=== PATIENT | female | born 1955 | race Caucasian/White ===

== ENCOUNTER → 2016-12-27 | Outpatient (CLI) | payer BC ==
[~2016-12-27] MED LIST: BISO2.5T PO; FERR142T PO; MULT-513 PO; PANT40TA PO; SERT25TA PO; WARF2TAB PO; WARF5TAB90 PO; ZNTT/150 PO
--- NOTE | 2016-12-27 15:32 | MAMMOGRAPHY REPORT ---
BILATERAL DIGITAL SCREENING MAMMOGRAM WITH CAD: 12/27/2016 CLINICAL HISTORY: Routine screening. Patient has no complaints. TECHNIQUE: Current study was also evaluated with a Computer Aided Detection (CAD) system. Bilatera l CC and MLO views were obtained. COMPARISON: Comparison is made to exams dated: 01/13/2015 mammogram, 01/05/2013 mammogram, 01/11/2014 mammogram, 07/02/2011 mammogram, 06/22/2011 mammogram, and 02/28/2010 mammogram - [facility]. BREAST COMPOSITION: There are scattered areas of fibroglandular density in both breasts. FINDINGS: No suspicious masses, calcifications, or areas of architectural distortion are noted in e ither breast. There has been no significant interval change compared to prior exams. Small nodular asymmetry in the right lateral posterior breast on the cc view is similar to the 2015 exam and is co nsidered benign given long-term stability and likely represents normal fibroglandular tissue. IMPRESSION: ACR BI-RADS CATEGORY 2: BENIGN There is no mammographic evidence of malignancy. A 1 year screening mammogram is recommended. The p atient will receive written notification of the results. Approximately 10% of breast cancers are not detected with mammography. A negative mammographic repor t should not delay biopsy if a clinically suggestive mass is present. Nely Way M.D. /:12/27/2016 15:14:49 Php Lamp Developer: Zoë PENA)(Nita), [facility] letter sent: Normal 1/2 BI-RADS Code: ACR BI-RADS Category 2: Benign
== END | disposition home or self-care (01) ==
LOC: C.MAMM 13:52
PROVIDERS: ATTEND Obstetrics & Gynecology
DX: Z12.31 Encounter for screening mammogram for malignant neoplasm of breast (principal)

== ENCOUNTER → 2017-01-14 | Outpatient (CLI) | payer BC ==
[~2017-01-14] MED LIST changes: -PANT40TA PO
--- NOTE | 2017-01-14 16:03 | DIAGNOSTIC IMAGING REPORT ---
TWO VIEW CHEST CLINICAL HISTORY: Atypical chest pain. FINDINGS: PA and lateral chest radiographs are compared to study dated 01/27/2015 and correlated with chest CT dated 08/14/2016. The heart is top normal in size. The lungs and pleural spaces are clear. There is no pneumothorax. The skeletal structures are osteopenic. The bony thorax appears intact. Surgical clips are seen in the right lower neck. IMPRESSION: No active disease in the chest. Electronically signed by: Shiva Diaz M.D. 01/14/2017 4:02 PM Dictated Date/Time: 01/14/2017 4:00 PM
[2017-01-14 16:42] LABS: BASO % 0.7 %; BASO ABS # 0.05 K/uL (0-0.2); COMPLETE YES; EOS % 3.3 %; HEMATOCRIT 42.7 % (37-47); IG% 0.1 %; LYMPH ABS # 2.61 K/uL (1.2-3.4); MEAN CELL VOLUME 85.4 fL (80-100); MEAN PLATELET VOLUME 10.9 fL (7.4-10.4); MONO % 4.8 %; NEUT % 55.1 %; PLATELET COUNT 262 K/uL (130-400); WHITE BLOOD COUNT 7.24 K/uL (4.8-10.8)
[2017-01-14 17:06] LABS: BLOOD UREA NITROGEN 17 mg/dl (7-18); GLUCOSE 93 mg/dl (70-99)
[2017-01-14 17:07] LABS: ALT/SGPT 37 U/L (12-78); AST/SGOT 18 U/L (15-37); BUN/CREATININE RATIO 25.4 (10-20); CALCIUM 9.5 mg/dl (8.5-10.1); CARBON DIOXIDE 28 mmol/L (21-32); CHLORIDE 105 mmol/L (98-107); CREATININE 0.67 mg/dl (0.60-1.20); POTASSIUM 3.5 mmol/L (3.5-5.1); SODIUM 141 mmol/L (136-145)
[2017-01-14 17:09] LABS: ALB/GLOB RATIO 1.1 (0.9-2); ALKALINE PHOSPHATASE 66 U/L (45-117)
== END | disposition home or self-care (01) ==
LOC: C.RAD1850 15:40
PROVIDERS: ATTEND Nurse Practitioner Adult Health
DX: R05 Cough (principal); R07.89 Other chest pain

== ENCOUNTER → 2017-10-23 | Outpatient (CLI) | payer BC ==
--- NOTE | 2017-10-23 21:30 | DIAGNOSTIC IMAGING REPORT ---
ULTRASOUND RIGHT UPPER QUADRANT ABDOMEN CLINICAL HISTORY: Right upper quadrant abdominal pain. COMPARISON STUDY: Abdominal CT dated 03/19/2010. TECHNIQUE: Real-time, grayscale, and color flow sonography of the right upper quadrant of the abdomen was performed. Images are reviewed in the transverse and longitudinal planes. FINDINGS: Liver: The liver is enlarged measuring over 18 cm in length. The liver demonstrates heterogeneously increased echotexture consistent with hepatic steatosis. There is no intrahepatic biliary ductal dilatation. The main portal vein is patent. Gallbladder: The gallbladder is normal in appearance. No gallstones are identified. There is no gallbladder wall thickening or pericholecystic fluid. A sonographic Tapia's sign is reportedly absent. The common bile duct measures up to 0.7 cm in diameter. Pancreas: Visualized portions of the pancreatic head and body are normal in appearance. The splenic vein is patent. Right kidney: Survey images of the right kidney demonstrate normal size and echotexture. There is no hydronephrosis. Ascites: None. IMPRESSION: 1. No acute sonographic abnormality is identified in the right upper quadrant. No gallstones are seen. 2. Hepatomegaly and mild hepatic steatosis. Electronically signed by: Shiva Diaz M.D. 10/23/2017 9:29 PM Dictated Date/Time: 10/23/2017 9:28 PM
== END | disposition home or self-care (01) ==
LOC: C.ULTR 20:52
PROVIDERS: ATTEND Family Medicine
DX: R10.11 Right upper quadrant pain (principal); R16.0 Hepatomegaly, not elsewhere classified; K76.0 Fatty (change of) liver, not elsewhere classified

== ENCOUNTER → 2017-10-29 | Outpatient (CLI) | payer BC ==
--- NOTE | 2017-10-29 15:46 | DIAGNOSTIC IMAGING REPORT ---
CT SCAN OF THE CHEST WITHOUT IV CONTRAST CLINICAL HISTORY: Pulmonary nodule follow-up. COMPARISON STUDY: Chest CT scans dated 08/14/2016 and 04/06/2010. TECHNIQUE: CT scan of the thorax was performed from the thoracic inlet to the upper abdomen. Images are reviewed in the axial, sagittal, and coronal planes. IV contrast was not administered for this examination as per the referring clinician. A dose lowering technique was utilized adhering to the principles of ALARA. CT DOSE: 303.63 mGycm FINDINGS: Thyroid: Imaged portions of the thyroid gland are normal in size and attenuation. A calcified nodule in the right lobe is unchanged and measures up to 1.1 cm. Thoracic aorta: The thoracic aorta is normal in caliber and demonstrates standard 3-vessel arch anatomy. Heart: The heart is enlarged and without pericardial effusion. The pulmonary trunk appears dilated, measuring up to 3.6 cm. This suggests pulmonary artery hypertension. Lungs and pleural spaces: Atelectasis is seen at the anterior left lung base in the anterior right middle lobe. There is no airspace consolidation typical for pneumonia or pleural effusion. A calcified granuloma in the right lower lobe is unchanged dating back to 2009. This corresponds to the nodule questioned on 08/14/2016. No concerning pulmonary lesion is identified. The trachea and central airways are clear. Mediastinum: There is no mediastinal lymphadenopathy. Michelle: Not well assessed without IV contrast. Axillae: There is no axillary lymphadenopathy. A stent is noted in the right axillary region. Upper abdomen: There is a tiny hiatal hernia. Mild hepatic steatosis is suggested. Skeletal structures: No lytic or blastic bony lesions are seen. The right first rib appears surgically absent. IMPRESSION: 1. A small granuloma is again seen in the right lower lobe. This is been present dating back to 2009 when it was clearly calcified, and corresponds to the nodule concern seen on 08/07/1716. 2. No new or concerning pulmonary lesion is identified. 3. There is bibasilar atelectasis. No airspace consolidation is seen typical for pneumonia and there is no pleural effusion. 4. Cardiomegaly. 5. Additional findings as above. Electronically signed by: Shiva Diaz M.D. 10/29/2017 3:44 PM Dictated Date/Time: 10/29/2017 3:34 PM
== END | disposition home or self-care (01) ==
LOC: C.CTS 15:17
PROVIDERS: ATTEND Internal Medicine
DX: R91.1 Solitary pulmonary nodule (principal); J98.11 Atelectasis; I51.7 Cardiomegaly

== ENCOUNTER → 2017-11-13 | Outpatient (CLI) | payer BC ==
[~2017-11-13] MED LIST changes: +ASPI-428 PO; +BISO5TAB15 PO; +FERR1TAB23 PO; +IMD/2 PO; +MULT-506 PO; +RANI150T85 PO; -ZNTT/150 PO
== END | disposition home or self-care (01) ==
LOC: C.LABSPEC 13:36
PROVIDERS: ATTEND Obstetrics & Gynecology
DX: N93.9 Abnormal uterine and vaginal bleeding, unspecified (principal)

== ENCOUNTER → 2017-11-13 | Outpatient (CLI) | payer BC | END | disposition home or self-care (01) | LOC: C.PAPS 14:11 | PROVIDERS: ATTEND Obstetrics & Gynecology | DX: Z01.411 Encounter for gynecological examination (general) (routine) with abnormal findings (principal); R87.615 Unsatisfactory cytologic smear of cervix ==

== ENCOUNTER → 2017-12-19 | Outpatient (CLI) | payer BC ==
[~2017-12-19] MED LIST changes: -BISO2.5T PO; -FERR142T PO; -IMD/2 PO; -MULT-513 PO; -RANI150T85 PO; -WARF2TAB PO; -WARF5TAB90 PO
== END | disposition home or self-care (01) ==
LOC: C.RDSM 18:21
PROVIDERS: ATTEND Orthopaedic Surgery
DX: M25.531 Pain in right wrist (principal); M25.532 Pain in left wrist

== ENCOUNTER → 2017-12-30 | Outpatient (CLI) | payer BC ==
--- NOTE | 2017-12-31 12:56 | MAMMOGRAPHY REPORT ---
BILATERAL DIGITAL SCREENING MAMMOGRAM TOMOSYNTHESIS WITH CAD: 12/30/2017 CLINICAL HISTORY: Routine screening. Patient has no complaints. TECHNIQUE: Breast tomosynthesis in addition to standard 2D mammography was performed. Current study was also evaluated with a Computer Aided Detection (CAD) system. COMPARISON: Comparison is made to exams dated: 12/27/2016 mammogram, 01/13/2015 mammogram, 01/11/2014 ma mmogram, 01/05/2013 mammogram, 06/22/2011 mammogram, and 02/28/2010 mammogram - [facility]. BREAST COMPOSITION: There are scattered areas of fibroglandular density in both breasts. FINDINGS: No suspicious mass, architectural distortion or cluster of microcalcifications is seen. IMPRESSION: ACR BI-RADS CATEGORY 1: NEGATIVE There is no mammographic evidence of malignancy. A 1 year screening mammogram is recommended. The pa tient will receive written notification of the results. Approximately 10% of breast cancers are not detected with mammography. A negative mammographic report should not delay biopsy if a clinically suggestive mass is present. Estephanie starkey/kwame:12/30/2017 15:47:35 Home Demonstrator: Daniella Toussaint RT(R)(M), [facility] letter sent: Normal 1/2 BI-RADS Code: ACR BI-RADS Category 1: Negative
== END | disposition home or self-care (01) ==
LOC: C.MAMM 15:29
PROVIDERS: ATTEND Obstetrics & Gynecology
DX: Z12.31 Encounter for screening mammogram for malignant neoplasm of breast (principal)

== ENCOUNTER → 2018-01-03 | Outpatient (CLI) | payer BC ==
[2018-01-03 16:15] LABS: HEMATOCRIT 42.1 % (37-47); HEMOGLOBIN 13.8 g/dL (12.0-16.0); MEAN CELL VOLUME 86.1 fL (80-100); MEAN CORPUSCULAR HEMOGLOBIN 28.2 pg (25-34); MEAN CORPUSCULAR HGB CONC 32.8 g/dl (32-36); MEAN PLATELET VOLUME 10.6 fL (7.4-10.4); PLATELET COUNT 221 K/uL (130-400); RED CELL DISTRIBUTION WIDTH CV 12.6 % (11.5-14.5); RED CELL DISTRIBUTION WIDTH SD 39.8 fL (36.4-46.3); WHITE BLOOD COUNT 7.52 K/uL (4.8-10.8)
[2018-01-03 16:29] LABS: PTT PATIENT 27.3 SECONDS (21.0-31.0)
== END | disposition home or self-care (01) ==
LOC: C.LAB1850 15:50
PROVIDERS: ATTEND Obstetrics & Gynecology
DX: Z01.812 Encounter for preprocedural laboratory examination (principal)

== ENCOUNTER → 2018-01-06 | Day surgery (SDC) | payer BC ==
[2017-12-16 15:26] VITALS: Ht 157.5 cm; Wt 75.0 kg
[~2018-01-06] VITALS: Ht 157.5 cm; Wt 75.0 kg
[~2018-01-06] MED LIST changes: +ATROPINE SULFATE 0.1 MG/ML 5ML SYR IV PRN; +BACITRACIN OINT 15 GM TUBE ONE; +DEXAMETHASONE SOD INJ 4 MG/ML VIAL ONE; +FENTANYL CITRATE INJ 50 MCG/1 ML 2 ML VIAL IV PRN; +FENTANYL CITRATE INJ 50 MCG/1 ML 2 ML VIAL ONE; +FERRIC SUBSULFATE 8 GM VIAL ONE; +IBUPROFEN 600 MG TAB PO PRN; +KETOROLAC TROMETHAMINE 30 MG/ML VIAL IV. PRN; +KETOROLAC TROMETHAMINE 30 MG/ML VIAL ONE; +LABETALOL HCL IV 5 MG/ML 20ML IV PRN; +LACTATED RINGER'S 1000ML 1,000 ML IV SCH; +LIDOCAINE HCL 2% 2 ML VIAL (20MG/ML) ONE; +LIDOCAINE/EPINEPHRINE 1% 20 ML VIAL ONE; +MIDAZOLAM HCL 1 MG/ML 2ML VIAL ONE; +NEOMYCIN/POLYMYX/BACITR OINT 15 GM TUBE ONE; +ONDANSETRON INJ 2 MG/ML 2 ML VIAL IV PRN; +ONDANSETRON INJ 2 MG/ML 2 ML VIAL ONE; +OXYCODONE/ACETAMINOPHEN 5-325 TAB PO PRN; +PROMETHAZINE HCL INJ 25 MG in SODIUM CHLORIDE 0.9% 50ML 50 ML IV PRN; +PROPOFOL IV EMULSION 10 MG/ML 20 ML VIAL IV ONE; +SODIUM CHLORIDE 0.9% 1000ML 1,000 ML IV SCH
--- NOTE | 2018-01-06 06:56 | History & Physical Bridge - SC ---
H&P Re-Evaluation Bridge Note: I have examined the patient, reviewed the History & Physical and in the interval since the performance of the History & Physical I have noted the following changes of clinical significance: No changes noted
--- NOTE | 2018-01-06 07:50 | [facility] Post Operative Brief Note ---
Immediate Operative Summary Operative Date Jan 06, 2018. Pre-Operative Diagnosis Abnormal Vaginal Bleeding, Hx Endometrial Cancer Post-Operative Diagnosis extesnive granulation tissue along vaginal cuff line taht is friable Procedure(s) Performed Vaginal Biopsy, Cauterization Of Granulation Tissue Surgeon Dr. Jillian Chin Director Of Software Development Surgeon(s) Lc Nye MD, Juliette Chakraborty, MSIII Estimated Blood Loss 10cc Findings Consistent with Post-Op Diagnosis Fluids (cc crystalloids) 500 Specimens A. Right Vaginal Cuff Biopsy B. Left Vaginal Cuff Biopsy Drains None Anesthesia Type General Complication(s) none Disposition Accompanied Pt To Recovery: yes Disposition: Recovery Room / PACU
--- NOTE | 2018-01-06 07:58 | Discharge Instructions-SurgCtr ---
Discharge Instructions Date of Service Jan 06, 2018. Visit Reason for Visit: Abnormal Vaginal Bleeding; Hx Endometrial Ca Discharge Discharge Diagnosis / Problem: bleeding vaginal granulation tissue Discharge Goals Goal(s): Therapeutic intervention Medications Stopped Medications Name(s): stop Aspirin for next 2 weeks Activity Recommendations Activity Limitations: per Instructions/Follow-up section Anesthesia . Post Anesthesia Instructions: If you have had General Anesthesia or IV Sedation: * Do not drive today. * Resume driving when surgeon permits. * Do not make important decisions or sign legal documents today. * Call surgeon for: 1. Temperature elevations greater than 101 degrees F. 2. Uncontrollable pain. 3. Excessive bleeding. 4. Persistent nausea and vomiting. 5. Medication intolerance (nausea, vomiting or rash). * For nausea and vomiting use only clear liquids such as: tea, soda, bouillon until nausea subsides, then gradually increase diet as tolerated. * If you have any concerns or questions, call your surgeon's office. If physician is unavailable and it is an emergency, call 911 or go to the nearest emergency room. . Instructions / Follow-Up Instructions / Follow-Up ACTIVITY RECOMMENDATIONS: * Avoid tampons, douching, hot tubs, pools, and intercourse until bleeding has stopped. * Nothing vaginally for 6 weeks. * May shower as usual. * No strenuous activity for 24-48 hours. After 24-48 hours, you may do anything you feel like doing (driving and sports are okay). SPECIAL CARE INSTRUCTIONS: Special Diet: * Mild nausea may occur in the immediate post-operative period. * Take clear liquids such as tea, cola or bouillon until all nausea has subsided; you may then resume your normal diet. Special Care: * Light bleeding and vaginal spotting can last from a few days to 3-4 weeks. Call your doctor if bleeding becomes heavier than the heaviest part of your period. * Check your temperature twice a day for one week. If it goes above 100.4 degrees Fahrenheit (38.0 Celsius), notify your doctor. * Call your doctor's office for an appointment for 6 weeks after your surgery. FOLLOW-UP VISIT: Call your doctor's office for an appointment for 6 weeks after your surgery. Diet Recommendations Home Diet: resume previous diet Procedures Procedures Performed: Vaginal Biopsy, Cauterization Of Granulation Tissue Pending Studies Studies pending at discharge: yes List of pending studies: pathology on vaginal biopsies Medical Emergencies . Who to Call and When: Medical Emergencies: If at any time you feel your situation is an emergency, please call 911 immediately. . Non-Emergent Contact Non-Emergency issues call your: Machinist Mate . . "Provider Documentation" section prepared by Hilda Lange. .
[2018-01-06 08:50] VITALS: TEMP 36.6
--- NOTE | 2018-01-06 09:02 | OPERATIVE REPORT ---
DATE OF OPERATION: 01/06/2018 SURGEON: Hilda Wiggins MD OIL PIPELINE OPERATOR: Juliette Chakraborty, medical student 3rd year and Dr. Lc Nye, PGY2. PREOPERATIVE DIAGNOSES: Abnormal vaginal bleeding and a history of endometrial cancer. POSTOPERATIVE DIAGNOSIS: Extensive granulation tissue along the vaginal cuff line. PROCEDURES: Vaginal biopsies and cauterization of granulation tissue. ESTIMATED BLOOD LOSS: 10 mL. ANESTHESIA: General. HISTORY: The patient is a 62-year-old multiparous white female who had undergone robotic surgery for grade 1 endometrioid cancer in June of 2014. She had a vaginal cuff dehiscence 1 month later and this was repaired here at [facility]. She had been doing well until approximately 1 year ago when she began having a pink discharge off and on. She was on Coumadin at that time because of a history of pulmonary emboli. The bleeding got progressively worse. Exams in the office were not sufficient to see the bleeding site. Therefore, she is scheduled for exam under anesthesia and evaluation of the vaginal cuff with vaginal biopsies. The patient understands the risk of procedure and is willing to proceed. GROSS FINDINGS: External genitalia within normal limits. There is a multiparous on inspection of the vaginal vault. It is normal except for extensive granulation tissue along the entire length of the vaginal cuff. It extends superiorly on the right with friable pieces of tissue present that were removed easily for biopsy. In the left vaginal cuff area, the granulation tissue had extended more posteriorly along the posterior vaginal wall. Again, there was friable polypoid type tissue along that vaginal cuff on the left. DESCRIPTION OF PROCEDURE: After the patient received adequate general anesthetic, she was prepped and draped in the usual sterile fashion. After bladder was emptied, vaginal retractors were used to identify the vaginal cuff, which was noted to be bleeding. Using direct pressure, the polypoid tissue was removed and sent for pathology. The remaining granulation bed was cauterized and then Astrogyn was applied to the granulation bed after hemostasis appeared to be satisfactory. A layer of bacitracin ointment was also placed over top of the Astrogyn. There was no further bleeding at this time and the case was terminated. The patient tolerated the procedure well and was stable upon arrival in recovery room. I attest to the content of the Intraoperative Record and any orders documented therein. Any exceptions are noted below. MTDD
--- NOTE | 2018-01-06 09:04 | Anesthesia Progress Nt - [facility] ---
Anesthesia Post Op Note Date & Time Jan 06, 2018 at 09:03 Vital Signs Pain Intensity: 3 Vital Signs Past 12 Hours Date Time Temp Pulse Resp B/P (MAP) Pulse Ox O2 Delivery O2 Flow Rate FiO2 01/06/18 08:41 36.3 49 16 126/65 96 Room Air 01/06/18 08:37 48 13 01/06/18 08:37 50 13 100 01/06/18 08:36 141/62 01/06/18 08:32 49 13 01/06/18 08:32 48 13 94 01/06/18 08:31 124/55 01/06/18 08:27 47 13 98 01/06/18 08:27 47 13 01/06/18 08:26 138/63 01/06/18 08:22 45 14 01/06/18 08:22 44 14 99 01/06/18 08:21 120/47 01/06/18 08:17 47 19 01/06/18 08:17 48 19 95 01/06/18 08:16 127/64 01/06/18 08:12 44 21 95 01/06/18 08:12 45 21 01/06/18 08:11 126/64 01/06/18 08:07 19 01/06/18 08:07 48 19 01/06/18 08:06 126/64 01/06/18 08:03 48 17 01/06/18 08:03 48 17 93 01/06/18 08:01 107/54 01/06/18 07:58 42 18 01/06/18 07:58 42 18 92 01/06/18 07:56 110/57 01/06/18 07:53 36.2 50 14 114/60 Mask 8 01/06/18 07:53 46 22 94 01/06/18 07:53 46 22 01/06/18 06:35 36.5 62 16 173/81 (111) 95 Room Air Notes Mental Status: alert / awake / arousable, participated in evaluation Pt Amnestic to Procedure: Yes Nausea / Vomiting: adequately controlled Pain: adequately controlled Airway Patency, RR, SpO2: stable & adequate BP & HR: stable & adequate Hydration State: stable & adequate Anesthetic Complications: no major complications apparent
[2018-01-06 09:26] VITALS: BP 133/78; PULSE 58; O2SAT 96
== END | disposition home or self-care (01) ==
LOC: X.SURG 06:22
PROVIDERS: ATTEND Obstetrics & Gynecology
DX: C54.1 Malignant neoplasm of endometrium (principal); N93.9 Abnormal uterine and vaginal bleeding, unspecified; Z85.42 Personal history of malignant neoplasm of other parts of uterus; K21.9 Gastro-esophageal reflux disease without esophagitis; D64.9 Anemia, unspecified; E78.5 Hyperlipidemia, unspecified; I10 Essential (primary) hypertension; I27.20 Pulmonary hypertension, unspecified; Q21.0 Ventricular septal defect; K44.9 Diaphragmatic hernia without obstruction or gangrene; E66.9 Obesity, unspecified; Z88.0 Allergy status to penicillin; Z83.3 Family history of diabetes mellitus; Z79.01 Long term (current) use of anticoagulants; Z88.2 Allergy status to sulfonamides; Z82.3 Family history of stroke; Z86.711 Personal history of pulmonary embolism

== ENCOUNTER → 2018-01-16 | Outpatient (CLI) | payer BC ==
[~2018-01-16] MED LIST changes: -ASPI-428 PO; -ATROPINE SULFATE 0.1 MG/ML 5ML SYR IV PRN; -BACITRACIN OINT 15 GM TUBE ONE; -DEXAMETHASONE SOD INJ 4 MG/ML VIAL ONE; -FENTANYL CITRATE INJ 50 MCG/1 ML 2 ML VIAL IV PRN; -FENTANYL CITRATE INJ 50 MCG/1 ML 2 ML VIAL ONE; +FERR142T PO; -FERRIC SUBSULFATE 8 GM VIAL ONE; -IBUPROFEN 600 MG TAB PO PRN; -KETOROLAC TROMETHAMINE 30 MG/ML VIAL IV. PRN; -KETOROLAC TROMETHAMINE 30 MG/ML VIAL ONE; -LABETALOL HCL IV 5 MG/ML 20ML IV PRN; -LACTATED RINGER'S 1000ML 1,000 ML IV SCH; -LIDOCAINE HCL 2% 2 ML VIAL (20MG/ML) ONE; -LIDOCAINE/EPINEPHRINE 1% 20 ML VIAL ONE; -MIDAZOLAM HCL 1 MG/ML 2ML VIAL ONE; -NEOMYCIN/POLYMYX/BACITR OINT 15 GM TUBE ONE; -ONDANSETRON INJ 2 MG/ML 2 ML VIAL IV PRN; -ONDANSETRON INJ 2 MG/ML 2 ML VIAL ONE; +OPTIRAY 320 IV PRN; -OXYCODONE/ACETAMINOPHEN 5-325 TAB PO PRN; -PROMETHAZINE HCL INJ 25 MG in SODIUM CHLORIDE 0.9% 50ML 50 ML IV PRN; -PROPOFOL IV EMULSION 10 MG/ML 20 ML VIAL IV ONE; -SODIUM CHLORIDE 0.9% 1000ML 1,000 ML IV SCH
--- NOTE | 2018-01-16 08:52 | DIAGNOSTIC IMAGING REPORT ---
ABDOMEN AND PELVIS CT WITH IV AND ORAL CONTRAST CT DOSE: 796.88 mGycm HISTORY: MALIGNANT NEOPLASM OF UTERUS TECHNIQUE: Multiaxial CT images of the abdomen and pelvis were performed following the use of intravenous and oral contrast. A dose lowering technique was utilized adhering to the principles of ALARA. COMPARISON STUDY: Chest CT 10/29/2017, CT abdomen and pelvis 03/19/2010. FINDINGS: Lung bases are clear. There is no pneumatosis or pneumoperitoneum identified. The imaged inferior cardiac chambers appear to be within the upper limits of normal in size. The liver, spleen, pancreas and adrenal glands are within normal limits. Kidneys, ureters and urinary bladder are within normal limits. Urinary bladder is decompressed. Uterus is surgically absent. The ovaries also appear to be surgically absent. No suspicious mass lesions identified within the pelvis. The aorta is normal in course and caliber. There is no bulky adenopathy identified. 8 mm right pelvic sidewall lymph node is seen on image 327 of series 3 which is nonspecific. There is no bowel obstruction or focal bowel wall thickening identified. Nondistention of the sigmoid colon. Normal appendix. Terminal ileum appears unremarkable. Soft tissues are unremarkable. Bones appear intact. No suspicious lytic or blastic bony lesions. IMPRESSION: 1. No acute intra-abdominal or intrapelvic abnormality identified. 2. Prior hysterectomy. No suspicious pelvic lesions or adenopathy identified. 3. No bowel obstruction or focal bowel wall thickening. Electronically signed by: Jeison Peterson M.D. 01/16/2018 8:50 AM Dictated Date/Time: 01/16/2018 8:32 AM
== END | disposition home or self-care (01) ==
LOC: C.CTS 07:47
PROVIDERS: ATTEND Obstetrics & Gynecology
DX: C55 Malignant neoplasm of uterus, part unspecified (principal)

== ENCOUNTER → 2018-02-05 | Outpatient (CLI) | payer BC ==
[~2018-02-05] MED LIST changes: -FERR1TAB23 PO; -OPTIRAY 320 IV PRN
== END | disposition home or self-care (01) ==
LOC: C.LAB 16:10
PROVIDERS: ATTEND Internal Medicine Hematology & Oncology
DX: I26.99 Other pulmonary embolism without acute cor pulmonale (principal)

== ENCOUNTER → 2018-03-06 | Outpatient (CLI) | payer BC ==
[~2018-03-06] MED LIST changes: +IMD/2 PO
[2018-03-06 17:53] LABS: ALBUMIN 3.7 gm/dl (3.4-5.0); ALKALINE PHOSPHATASE 69 U/L (45-117); ALT/SGPT 92 U/L (12-78); AST/SGOT 42 U/L (15-37); BLOOD UREA NITROGEN 21 mg/dl (7-18); CALCIUM 9.3 mg/dl (8.5-10.1); CARBON DIOXIDE 29 mmol/L (21-32); CREATININE 0.71 mg/dl (0.60-1.20); POTASSIUM 3.6 mmol/L (3.5-5.1); SODIUM 138 mmol/L (136-145); TOTAL PROTEIN 7.4 gm/dl (6.4-8.2)
[2018-03-06 18:03] LABS: GLUCOSE 98 mg/dl (70-99)
== END | disposition home or self-care (01) ==
LOC: C.LAB1850 16:17
PROVIDERS: ATTEND Internal Medicine
DX: E87.6 Hypokalemia (principal)